=== PATIENT | male | born 1935 | race Caucasian/White ===

== ENCOUNTER 2024-12-13 14:17 | Emergency (ER) | payer BC ==
[~2024-12-13] VITALS: Ht 170.2 cm; Wt 70.3 kg
[~2024-12-13 14:17] MED LIST: CALC-1042 MT; CHOL400D7 PO; MIRA25TA MT; TAMS-11 PO
[2024-12-13 14:37] VITALS: O2SAT 97
[2024-12-13] MEDS: ONDANSETRON HCL 4MG/2ML INJ IV STA (15:30)
[2024-12-13] MEDS: KETOROLAC 30MG/ML VIAL IV STA (16:30)
[2024-12-13] MEDS ORDERED: SENN-362 MT (16:55)
[2024-12-13] MEDS ORDERED: POLY17PO3 MT (16:55)
[2024-12-13] MEDS ORDERED: DOCU-138 MT (16:55)
[2024-12-13] MEDS: NA PHOS,M-B/NA PHOS,DI-BA ENEMA 118ML PR ONE (17:00)
[2024-12-13] MEDS ORDERED: SULF1TAB48 MT (17:10)
[2024-12-13] MEDS ORDERED: METR-167 MT (17:10)
[2024-12-13] MEDS: DOCUSATE SODIUM 100MG CAPSULE PO ONE (17:57)
[2024-12-13] MEDS: SENNOSIDES/DOCUSATE SOD 8.6/50MG TABLET PO PRN (17:58)
[2024-12-13] MEDS: POLYETHYLENE GLYCOL 3350 (17GM) 1 DOSE PACK PO ONE (17:58)
[2024-12-13 18:40] VITALS: BP 122/71; PULSE 76; RESP 14; TEMP 36.9; O2SAT 98
== END 2024-12-13 19:49 | disposition home or self-care (01) ==
LOC: ER 14:17
DX: K59.09 Other constipation (principal); K57.30 Diverticulosis of large intestine without perforation or abscess without bleeding; F03.90 Unspecified dementia, unspecified severity, without behavioral disturbance, psychotic disturbance, mood disturbance, and anxiety; Z55.6 Problems related to health literacy; Z85.46 Personal history of malignant neoplasm of prostate; Z88.0 Allergy status to penicillin; Z91.148 Patient's other noncompliance with medication regimen for other reason
CPT/HCPCS: 74176; 99285